=== PATIENT | male | born 1975 | race Two or more races ===

== ENCOUNTER 2018-08-30 18:37 | Emergency (ER) | payer SELFPAY ==
[~2018-08-30] VITALS: Ht 188 cm; Wt 99.8 kg
[2018-08-30 18:47] VITALS: BP 142/82
--- NOTE | 2018-08-30 18:50 | NUR ---
ED Nurse Note: pt walked in to ER with a daughter from home due to Rt side of face numbness. Pt aao x4 and ambulatory. skin clean and intact. calm and cooperative. symmetrical smile, hands strength noted. no drifts on both arm and legs. pt denied trauma or injury or chest pain.
--- NOTE | 2018-08-30 18:57 | NUR ---
ED Nurse Note: ERMD at bedside.
--- NOTE | 2018-08-30 19:01 | NUR ---
HAND-OFF: Report given to Misael Morales RN. ERMD still at bedside.
--- NOTE | 2018-08-30 19:02 | Emergency Room Report ---
History of Present Illness General Chief Complaint: General Complaint Source: Patient Present Illness HPI 42-year-old male presenting with right facial numbness. Reportedly patient says that it started on , says that it progressed Wednesday and Wednesday. He is able to taste food but also feels like his right tongue is numb as well. There is no headache no trauma. No pain to his face. No arm or leg weakness no slurred speech. No altered mental status. No drug use Allergies: Coded Allergies: No Known Allergies (Unverified , 08/30/18) Patient History Past Medical History: see triage record Past Surgical History: none Pertinent Family History: none Reviewed Nursing Documentation: PMH: Agreed; PSxH: Agreed Nursing Documentation-PMH Past Medical History: No Stated History Review of Systems All Other Systems: negative except mentioned in HPI Physical Exam Vital Signs Date Time Temp Pulse Resp B/P (MAP) Pulse Ox O2 Delivery O2 Flow Rate FiO2 08/30/18 18:41 97.5 78 17 142/82 (102) 99 Room Air Sp02 EP Interpretation: reviewed, normal General Appearance: normal inspection, well appearing, no apparent distress, alert, GCS 15, non-toxic Head: normocephalic, atraumatic Eyes: bilateral eye normal inspection, bilateral eye PERRL, bilateral eye EOMI ENT: normal ENT inspection, normal pharynx, normal voice, moist mucus membranes Neck: normal inspection, full range of motion, supple Respiratory: normal inspection, lungs clear, normal breath sounds, no respiratory distress, no retraction, no wheezing, speaking full sentences, chest symmetrical Cardiovascular #1: normal inspection, regular rate, rhythm, normal capillary refill Cardiovascular #2: 2+ radial (R), 2+ radial (L) Gastrointestinal: normal inspection, non tender, soft, non-distended, no guarding Musculoskeletal: normal inspection, back normal, normal range of motion, non- tender Neurologic: normal inspection, alert, oriented x3, responsive, doctor of veterinary medicine III-XII nml as tested, motor strength/tone normal, sensory intact, normal gait, speech normal Psychiatric: normal inspection, judgement/insight normal, memory normal Medical Decision Making Diagnostic Impression: Primary Impression: Facial paresthesia Additional Impression: Acute maxillary sinusitis ER Course 42-year-old male with right facial numbness DDX: Peripheral facial nerve neuropathy versus electrode disturbance versus paresthesias. I have a low suspicion for acute CVA at this time but I will perform a head CT Plan: Obtain labs, CT head ER course: Patient has remained stable during ED stay. No new neurological signs or symptoms At this point, it seems this paresthesia is very peripheral. He has no risk factors for acute stroke No neck pain or DILLARD to suggest cerebral dissection +sinusitus on the CT, will dc home with abd Disposition: Patient is to be discharged to home. Patient is instructed to follow up with their primary care doctor within 5 days. Please note that this Emergency Department Report was dictated using [employer] specialist technology software, occasionally this can lead to erroneous entry secondary to interpretation by the dictation equipment CT/MRI/US Diagnostic Results CT/MRI/US Diagnostic Results : Imaging Test Ordered: CT HEAD Impression NO ACUTE INTRACRANIAL FINDINGS +SINUSITUS Last Vital Signs Date Time Temp Pulse Resp B/P (MAP) Pulse Ox O2 Delivery O2 Flow Rate FiO2 08/30/18 18:47 78 17 Room Air 08/30/18 18:47 97.5 142/82 99 Disposition: HOME, SELF-CARE Condition: Stable Scripts Amoxicillin/Potassium Clav 875-125* (AUGMENTIN 875-125 TABLET*) 1 Each Tablet 1 TAB ORAL TWICE A DAY for 7 Days, #14 TAB Prov: Tera Hernández M.D. 08/30/18 Tera Hernández M.D. Aug 30, 2018 19:02
--- NOTE | 2018-08-30 19:20 | NUR ---
ED Nurse Note: iv access established. blood sent down to lab.
--- NOTE | 2018-08-30 19:28 | NUR ---
ED Nurse Note: pt down to ct via wheelchair
[2018-08-30 19:35] LABS: BASOPHILS % (AUTO) 1.4 % (0.0-2.0); EOSINOPHILS % (AUTO) 1.9 % (0.0-3.0); HEMATOCRIT 46.6 % (42.0-52.0); HEMOGLOBIN 15.8 G/DL (14.2-18.0); LYMPHOCYTES % (AUTO) 34.9 % (20.0-45.0); MEAN CORPUSCULAR VOLUME 92 FL (80-99); MONOCYTES % (AUTO) 6.7 % (1.0-10.0); PLATELET COUNT 243 K/UL (150-450); RED BLOOD COUNT 5.09 M/UL (4.70-6.10); WHITE BLOOD COUNT 9.2 K/UL (4.8-10.8)
--- NOTE | 2018-08-30 19:41 | NUR ---
ED Nurse Note: pt back from imaging
[2018-08-30 20:00] LABS: ANION GAP 9 mmol/L (5-15); BLOOD UREA NITROGEN 9 mg/dL (7-18); CALCIUM 9.1 MG/DL (8.5-10.1); CARBON DIOXIDE 27 MMOL/L (21-32); CHLORIDE 104 MMOL/L (98-107); POTASSIUM 3.4 MMOL/L (3.5-5.1); SODIUM 140 MMOL/L (136-145)
[2018-08-30 20:03] LABS: ALANINE AMINOTRANSFERASE 45 U/L (12-78); ALBUMIN 4.3 G/DL (3.4-5.0); ALBUMIN/GLOBULIN RATIO 1.3 (1.0-2.7); ALKALINE PHOSPHATASE 68 U/L (46-116); ASPARTATE AMINO TRANSFERASE 22 U/L (15-37); BILIRUBIN,TOTAL 0.3 MG/DL (0.2-1.0)
[2018-08-30] MEDS ORDERED: AUGMENTIN 875-1 EAC1 ORAL (20:12)
[2018-08-30 20:15] VITALS: BP 142/82
--- NOTE | 2018-08-30 20:15 | NUR ---
ER DISCHARGE NOTE: Patient is cleared to be discharged per ERMD, pt is aox4, on room air, with stable vital signs. pt was given dc and prescription instructions, pt was able to verbalize understanding, pt id band and iv site removed without complications. pt is able to ambulate with steady gait. pt took all belongings.
--- NOTE | 2018-08-31 11:09 | Diagnostic Imaging Report ---
Indication: Right facial numbness Technique: Contiguous 5 mm thick transaxial imaging of the head obtained in a Siemens Sensation [address] scanner. Soft tissue and bone windows generated. Automatic Exposure Control was utilized. Total Dose length Product (DLP): 1421.[address] Dose Index Volume (CTDIvol): 70.38 mGy Comparison: none Findings: The size and configuration of the cortical sulci, basal cisterns, and ventricles are within normal limits for age. There is no mass effect, midline shift, or edema identified. There is no evidence of acute hemorrhage or abnormal intra-axial or extra-axial fluid collections. The bones and soft tissues are unremarkable. Impression: No mass effect, edema or acute bleed. The CT scanner at [facility] is accredited by the [employer] and the scans are performed using dose optimization techniques as appropriate to a performed exam including Automatic Exposure control.
--- NOTE | 2018-08-31 14:13 | Diagnostic Imaging Report ---
Indication: Chest pain Comparison: None A single view chest radiograph was obtained. Findings: Cardiomediastinal appearance is within normal limits for age. The lungs are clear. Pulmonary vascularity is appropriate. The diaphragmatic contour is smooth and costophrenic angles are sharp. No pleural effusions are identified. The bones are unremarkable. Impression: No acute findings
== END 2018-08-30 20:15 | disposition home or self-care (01) ==
LOC: EMR 19:23
DX: R20.2 Paresthesia of skin (principal); J01.00 Acute maxillary sinusitis, unspecified
CPT/HCPCS: 36415; 70450; 71045; 80053; 85025; 99284

== ENCOUNTER 2018-09-01 22:44 | Emergency (ER) | payer MEDICAID ==
[~2018-09-01] VITALS: Ht 188 cm; Wt 68.0 kg
[~2018-09-01 22:44] MED LIST: AUGMENTIN 875-1 EAC1 ORAL
[2018-09-01 23:30] VITALS: BP 123/77
--- NOTE | 2018-09-01 23:30 | NUR ---
ER Nurse Note: Pt came from home with daughter c/o RT sided tingling and numbness of face since 1 week. Pt denies pain, no facial drooping. Pt stated he was here 2 days ago for the same reason. Scars to LT side of face; skin intact. Will continue to [facility].
[2018-09-01] MEDS ORDERED: VALTREX500 MG ORAL (23:36)
[2018-09-01] MEDS ORDERED: PREDNISONE20 MG ORAL (23:36)
--- NOTE | 2018-09-01 23:36 | Emergency Room Report ---
History of Present Illness General Chief Complaint: General Complaint Source: Patient Present Illness HPI This is a 42-year-old male with no past medical history. He presents with complaint of right facial numbness. This been ongoing for for 5 days now. No facial droop. Most of the pain is to the right lower lip and tongue area. No dental infection. No dental pain. No fever chills but no nausea no vomiting. He was seen here [address] scans negative. He was treated for acute sinusitis. He said is not helping. Not getting any better. Allergies: Coded Allergies: No Known Allergies (Unverified , 08/30/18) Patient History Past Medical History: see triage record, old chart reviewed Past Surgical History: none Pertinent Family History: none Social History: Denies: smoking Immunizations: other Reviewed Nursing Documentation: PMH: Agreed; PSxH: Agreed Nursing Documentation-PMH Past Medical History: No Stated History Review of Systems Eye: Denies: eye pain, blurred vision ENT: Denies: ear pain, nose congestion, throat swelling Respiratory: Denies: cough, shortness of breath Cardiovascular: Denies: chest pain, palpitations Gastrointestinal: Denies: abdominal pain, diarrhea, nausea, vomiting Musculoskeletal: Denies: back pain, joint pain Skin: Denies: rash Neurological: Denies: headache, numbness Endocrine: Denies: increased thirst, increased urine Hematologic/Lymphatic: Denies: easy bruising All Other Systems: negative except mentioned in HPI Physical Exam Vital Signs Date Time Temp Pulse Resp B/P (MAP) Pulse Ox O2 Delivery O2 Flow Rate FiO2 09/01/18 23:15 97.9 68 18 123/77 (92) 100 Room Air Vitals normal Sp02 EP Interpretation: reviewed, normal General Appearance: well appearing, no apparent distress, alert Head: normocephalic, atraumatic Eyes: bilateral eye PERRL, bilateral eye EOMI ENT: hearing grossly normal, normal pharynx Neck: full range of motion, supple, no meningismus Respiratory: chest non-tender, lungs clear, normal breath sounds Cardiovascular #1: regular rate, rhythm, no murmur Gastrointestinal: normal bowel sounds, non tender, no mass, no organomegaly, no bruit, non-distended Musculoskeletal: back normal, gait/station normal, normal range of motion Neurologic: alert, oriented x3, other - decrease sensation to the right lower lip and chin area. Psychiatric: mood/affect normal Medical Decision Making Diagnostic Impression: Primary Impression: Facial paresthesia ER Course Patient with facial paresthesia. Question for early Glass's palsy. No evidence of any CVA. Will discharge home. Last Vital Signs Date Time Temp Pulse Resp B/P (MAP) Pulse Ox O2 Delivery O2 Flow Rate FiO2 09/01/18 23:15 97.9 68 18 123/77 (92) 100 Room Air Status: unchanged Disposition: HOME, SELF-CARE Condition: Stable Scripts Prednisone* (PREDNISONE*) 20 Mg Tablet 60 MG ORAL DAILY, #21 TAB Prov: Jayjay Amador MD 09/01/18 Valacyclovir Hcl* (VALTREX*) 500 Mg Tablet 1000 MG ORAL THREE TIMES A DAY for 7 Days, TAB 0 Refills Prov: Jayjay Amador MD 09/01/18 Additional Instructions: Follow-up with your doctor in 7 days. Return if symptoms worsen. Jayjay Amador MD Sep 01, 2018 23:36
[2018-09-01 23:50] VITALS: BP 123/77
--- NOTE | 2018-09-01 23:50 | NUR ---
Note dontamariana in EDM - 09/02/18 at 0140 by [email or web address] ER Nurse Note: Pt came from home with daughter c/o RT sided tingling and numbness of face since 1 week. Pt denies pain, no facial drooping. Pt stated he was here 2 days ago for the same reason. Scars to LT side of face; skin intact. Will continue to [facility].
--- NOTE | 2018-09-01 23:50 | NUR ---
ER Nurse Note: Pt seen, treated, medically cleared for discharge by ERMD. Discharge instuctions and prescriptions given with repeat verbalization by pt and daughter. Emphasized to follow up with primay care provider; take whole course of medication. Explained each medication. All orders completed per ERMD orders. Pt a&ox4, VSS, no signs of distress. ID band removed. All questions answered per pt's questions. Pt left with all belongings, left with own transportation.
== END 2018-09-01 23:30 | disposition home or self-care (01) ==
LOC: EMR 23:26
DX: R20.2 Paresthesia of skin (principal)
CPT/HCPCS: 99282

== ENCOUNTER 2018-09-02 18:09 | Emergency (ER) | payer MEDICAID ==
[~2018-09-02] VITALS: Ht 188 cm; Wt 99.8 kg
[~2018-09-02 18:09] MED LIST changes: +PREDNISONE20 MG ORAL; +VALTREX500 MG ORAL
[2018-09-02 19:20] VITALS: BP 121/77
--- NOTE | 2018-09-02 19:41 | Emergency Room Report ---
History of Present Illness General Chief Complaint: General Complaint Source: Patient Present Illness HPI 42-year-old male presents to the emergency department for the third day in a row complaining of persistent right-sided lower lip paresthesia x5 days. He denies trauma or fall he denies fevers, recent dental procedures, pain or rashes. He denies any other symptoms besides paresthesias he denies history of CVA, weakness in the extremities, inability to talk or swallow, facial droop, tinnitus or previous history of TMJ disorders. Initially he was placed on Augmentin the following day he was DC'd from the Augmentin and placed on valacyclovir, he now presents today with no changes in his symptoms. He denies any aggravating or relieving factors. reports 5/10 in severity numbness along the right jawline and right side of the lower lip. Previously had CT work up which was normal. Allergies: Coded Allergies: No Known Allergies (Unverified , 08/30/18) Patient History Past Medical History: see triage record, old chart reviewed Past Surgical History: none Pertinent Family History: none Immunizations: UTD Reviewed Nursing Documentation: PMH: Agreed; PSxH: Agreed Nursing Documentation-PMH Past Medical History: No Stated History Review of Systems All Other Systems: negative except mentioned in HPI Physical Exam Vital Signs Date Time Temp Pulse Resp B/P (MAP) Pulse Ox O2 Delivery O2 Flow Rate FiO2 09/02/18 18:21 98.6 71 20 121/77 (92) 97 Room Air Sp02 EP Interpretation: reviewed, normal General Appearance: no apparent distress, alert, GCS 15, non-toxic Head: normocephalic, atraumatic Eyes: bilateral eye normal inspection, bilateral eye PERRL ENT: hearing grossly normal, normal pharynx, normal voice, TMs + canals normal , uvula midline, moist mucus membranes, other - no clicking/subluxation of the TMJ Neck: full range of motion, no meningismus, no bony tend Respiratory: lungs clear, normal breath sounds, speaking full sentences Cardiovascular #1: regular rate, rhythm Musculoskeletal: back normal, gait/station normal, normal range of motion, non- tender Neurologic: alert, oriented x3, responsive, motor strength/tone normal, sensory intact, normal gait, speech normal, no pronator, other - no facial droop , able to stick tongue straight out. equal powder cutting operator strength, grossly normal Psychiatric: judgement/insight normal Skin: no rash Lymphatic: no adenopathy Medical Decision Making PA Attestation Dr. Langston is my supervising Physician whom patient management has been discussed with. Diagnostic Impression: Primary Impression: Facial paresthesia ER Course 42-year-old male presents to the emergency department for the third day in a row complaining of persistent right-sided lower lip paresthesia x5 days. He denies trauma or fall he denies fevers, recent dental procedures, pain or rashes. He denies any other symptoms besides paresthesias he denies history of CVA, weakness in the extremities, inability to talk or swallow, facial droop, tinnitus or previous history of TMJ disorders. Initially he was placed on Augmentin the following day he was DC'd from the Augmentin and placed on valacyclovir, he now presents today with no changes in his symptoms. He denies any aggravating or relieving factors. reports 5/10 in severity numbness along the right jawline and right side of the lower lip. Previously had CT work up which was normal. Ddx considered but are not limited to CN injury/compression, mass, dental infection, neuropathy, paresthesia, electrolyte imbalance, c, stroke, , cyanobobalamine deficiency. nerve palsy, neuritis Reviewed previous charts/visits where pt. had labs and imaging which were unremarkable. Vital signs: are WNL, pt. is afebrile H&PE are most consistent with persistent paresthesia without change in character or neurological deficit. ORDERS: none required at this time, the diagnosis is clinical ED INTERVENTIONS: None required at this time. -I do not identify an emergent condition at this time. With current presentation , pt. is stable for close outpatient follow up and conservative treatment. D/ w pt. to return promptly to ED with worsening or new symptoms.- Pt. verbalizes' understanding and agreement with proposed treatment plan. - D/w pt. to follow up with Neurologist if conservative treatment does not relieve symptoms or for further evaluation. DISCHARGE: At this time pt. is stable for d/c to home. Will provide printed patient care instructions, and any necessary prescriptions. Care plan and follow up instructions have been discussed with the patient prior to discharge. Last Vital Signs Date Time Temp Pulse Resp B/P (MAP) Pulse Ox O2 Delivery O2 Flow Rate FiO2 09/02/18 19:20 71 20 Room Air 09/02/18 19:20 98.6 121/77 97 Disposition: HOME, SELF-CARE Condition: Stable Referrals: [facility] Patient Instructions: Paresthesia Additional Instructions: Take previously prescribed medications as directed. Follow up with a Primary Care Provider in 3-5 days FOR NEUROLOGIST REFERRAL , even if your symptoms have resolved. --Please review list of primary care clinics, if you do not already have a primary care provider Return sooner to ED if new symptoms occur, or current symptoms become worse. - Please note that this Emergency Department Report was dictated using [employer] grower technology software, occasionally this can lead to erroneous entry secondary to interpretation by the dictation equipment. Cynthia Ann Sep 02, 2018 19:41
[2018-09-02 19:56] VITALS: BP 121/77
== END 2018-09-02 19:56 | disposition home or self-care (01) ==
LOC: EMR 18:37
DX: R20.2 Paresthesia of skin (principal)
CPT/HCPCS: 99281

== ENCOUNTER 2019-03-31 18:01 | Emergency (ER) | payer SELFPAY ==
[~2019-03-31] VITALS: Ht 188 cm; Wt 104.3 kg
--- NOTE | 2019-03-31 18:25 | NUR ---
ED Nurse Note: Pt ambulated to ED d/t infection on RT index finger; noted non-profused bleeding. Daughter at bedside.
[2019-03-31] MEDS ORDERED: Tetanus/Diptheria/Pertussis IM ONE (18:45)
[2019-03-31] MEDS ORDERED: Cephalexin 500mg cap ORAL ONE (18:45)
[2019-03-31 18:58] VITALS: BP 165/94
--- NOTE | 2019-03-31 19:10 | NUR ---
ED Nurse Note: Report received from JASON Arredondo. Pt resting in chair, vss, no s/s of distress noted.
--- NOTE | 2019-03-31 19:10 | NUR ---
HAND-OFF: Report given to Janie GOMEZ.
[2019-03-31 19:20] VITALS: BP 159/95
--- NOTE | 2019-03-31 19:23 | NUR ---
ED Nurse Note: xray at bedside
--- NOTE | 2019-03-31 19:24 | Diagnostic Imaging Report ---
EXAM: XR Right Fingers, 2 or More Views CLINICAL HISTORY: TRAUMA TECHNIQUE: Frontal, lateral and oblique views focused on the right index finger. COMPARISON: No relevant prior studies available. FINDINGS: Fracture of the tuft of the right second distal phalanx. Overlying laceration. Small densities near the fracture site are likely bone fragments, but difficult to exclude foreign body. No dislocation. IMPRESSION: Fracture of the tuft of the right second distal phalanx. Overlying laceration. Small densities near the fracture site are likely bone fragments, but difficult to exclude foreign body.
[2019-03-31] MEDS ORDERED: Ketorolac 30mg Inj IM ONE (19:45)
--- NOTE | 2019-03-31 19:45 | NUR ---
ED Nurse Note: All medications administered, no s/s of distress noted. VSS. No adverse reactions.
--- NOTE | 2019-03-31 19:45 | Emergency Room Report ---
History of Present Illness General Chief Complaint: Puncture Wound Source: Patient Present Illness HPI 43-year-old male with no significant medical history here complaining of puncture wound of right index finger arrival to the ED. Patient reports that he was working with electric drill as a drill went through one side of the finger. Patient has full range of motion of the finger, denies any tingling or numbness. No neurovascular deficits noted. Patient does not have any motor or sensory deficits. Has full range of motion of the affected area. Size of origin of the puncture wound noted. Not up-to-date with tetanus shot. Denies fever and chills, pain radiation, no other injuries. Allergies: Coded Allergies: No Known Allergies (Unverified , 08/30/18) Patient History Past Medical History: see triage record Past Surgical History: none Pertinent Family History: none Immunizations: other Reviewed Nursing Documentation: PMH: Agreed; PSxH: Agreed Nursing Documentation-PM Past Medical History: No Stated History Review of Systems All Other Systems: negative except mentioned in HPI Physical Exam Vital Signs Date Time Temp Pulse Resp B/P (MAP) Pulse Ox O2 Delivery O2 Flow Rate FiO2 03/31/19 18:21 98.6 68 15 165/94 (117) 97 Room Air Sp02 EP Interpretation: reviewed, normal General Appearance: no apparent distress, alert, GCS 15, non-toxic Head: normocephalic, atraumatic Eyes: bilateral eye normal inspection, bilateral eye PERRL ENT: hearing grossly normal, normal pharynx, no angioedema, normal voice Neck: full range of motion, supple/symm/no masses Respiratory: normal inspection, lungs clear, no rhonchi, no respiratory distress, no retraction, no wheezing Cardiovascular #1: regular rate, rhythm, no edema, no murmur Cardiovascular #2: 2+ radial (R), 2+ radial (L) Gastrointestinal: normal bowel sounds, non tender, soft, non-distended, no guarding, no rebound Rectal: deferred Genitourinary: no CVA tenderness Musculoskeletal: back normal, other - puncture wound right index finger Neurologic: alert, motor strength/tone normal, oriented x3, sensory intact, responsive, speech normal Psychiatric: judgement/insight normal, memory normal, mood/affect normal, no suicidal/homicidal ideation Skin: no rash, other - Puncture wound rightindex finger Lymphatic: no adenopathy Procedures Splinting Splinting : Consent: Verbal Location: Left index finger Pre-Made Type: metal Pre-Proc Neuro Vasc Exam: normal Post-Proc Neuro Vasc Exam: normal Patient Tolerated: Well Complications: None Medical Decision Making PA Attestation All diagnoses and treatment plans were reviewed and discussed with my supervising physician Dr. Bynum Diagnostic Impression: Primary Impression: Puncture wound Additional Impression: Fracture of phalanx of right index finger ER Course 43-year-old male with no significant medical history here complaining of puncture wound of right index finger arrival to the ED. Patient reports that he was working with electric drill as a drill went through one side of the finger. Patient has full range of motion of the finger, denies any tingling or numbness. No neurovascular deficits noted. Patient does not have any motor or sensory deficits. Has full range of motion of the affected area. Size of origin of the puncture wound noted. Not up-to-date with tetanus shot. Denies fever and chills, pain radiation, no other injuries. Ddx considered but are not limited to: Finger sprain versus partial versus fracture versus contusion Vital signs: are WNL, pt. is afebrile H&PE are most consistent with : Fracture of right index finger, puncture wound ORDERS: Hand x-ray, Keflex, Tylenol 3, ibuprofen ED INTERVENTIONS: Wound clean and dressed, finger splint DISCHARGE: At this time pt. is stable for d/c to home. Will provide printed patient care instructions, and any necessary prescriptions. Care plan and follow up instructions have been discussed with the patient prior to discharge. Patient to follow-up with eligibility specialist, take medication as directed Worsening symptoms return to the emergency room. At this time patient is to be sent to hand specialist I do not notice any other or sensory deficits however patient to follow-up with hand specialist. If worsening symptoms return to emergency room Other X-Ray Diagnostic Results Other X-Ray Diagnostic Results : X-Ray ordered: finger xray # of Views/Limited Vs Complete: 3 View Indication: Pain EP Interpretation: Yes PA Xray: Interpretation reviewed, by supervising MD, and agrees with findings. Interpretation: other - fx right index finger Impression: Other - fx distal phalanx right index finger Electronically Signed by: Cecilio MILAN Scribmirta Text IMPRESSION: Fracture of the tuft of the right second distal phalanx. Overlying laceration. Small densities near the fracture site are likely bone fragments, but difficult to exclude foreign body. Radiologist: Matt Brooks M.D. Electronically Signed: 03/31/19 19:23 Last Vital Signs Date Time Temp Pulse Resp B/P (MAP) Pulse Ox O2 Delivery O2 Flow Rate FiO2 03/31/19 18:58 98.6 78 15 165/94 97 Room Air Disposition: HOME, SELF-CARE Condition: Stable Scripts Ibuprofen* (MOTRIN*) 600 Mg Tablet 600 MG ORAL Q8H PRN for For Pain, #30 TAB 0 Refills Prov: Cecilio Dougherty 03/31/19 Cephalexin* (KEFLEX*) 500 Mg Capsule 500 MG ORAL EVERY 6 HOURS for 7 Days, #28 CAP Prov: Cecilio Dougherty 03/31/19 Patient Instructions: Finger Fracture, Puncture Wound Additional Instructions: Follow-up with primary care provider, take medication as directed, avoid strenuous physical activity with affected side, if worsening symptoms return to the emergency room Cecilio Dougherty Mar 31, 2019 19:45
[2019-03-31] MEDS ORDERED: IBUPROFEN600 MG ORAL (19:46)
[2019-03-31] MEDS ORDERED: CEPHALEXIN500 MG ORAL (19:46)
[2019-03-31 19:59] VITALS: BP 159/94
--- NOTE | 2019-03-31 19:59 | NUR ---
ER DISCHARGE NOTE: Patient is cleared to be discharged home per ERMD, pt is aox4, on room air, with stable vital signs. pt was given dc and prescription instructions, pt was able to verbalize understanding, pt id band aremoved. pt is able to ambulate with steady gait. pt took all belongings.
== END 2019-03-31 19:59 | disposition home or self-care (01) ==
LOC: EMR 18:15
DX: S61.230A Puncture wound without foreign body of right index finger without damage to nail, initial encounter (principal); Z23 Encounter for immunization; S62.630A Displaced fracture of distal phalanx of right index finger, initial encounter for closed fracture; X58.XXXA Exposure to other specified factors, initial encounter; Y92.9 Unspecified place or not applicable
CPT/HCPCS: 29130; 73140; 90471; 90715; 96372; 99283; J1885